=== PATIENT | male | born 1980 | race Caucasian/White ===

== ENCOUNTER 2018-11-19 09:55 | Emergency (ER) | payer OTHER ==
[~2018-11-19] VITALS: Ht 167.6 cm; Wt 86.4 kg
[2018-11-19] MEDS ORDERED: PERTUSS(ACELL),DIPH,TET VAC/PF 0.5 ML VIAL IM ONE (10:45)
[2018-11-19 13:30] VITALS: BP 119/68
== END 2018-11-19 14:01 | disposition home or self-care (01) ==
LOC: EMS 09:56
DX: S61.031A Puncture wound without foreign body of right thumb without damage to nail, initial encounter (principal); L08.89 Other specified local infections of the skin and subcutaneous tissue; W26.8XXA Contact with other sharp object(s), not elsewhere classified, initial encounter; Y93.89 Activity, other specified; Y92.69 Other specified industrial and construction area as the place of occurrence of the external cause; Y99.0 Civilian activity done for income or pay
CPT/HCPCS: 73140; 90471; 90715; 96372; 99283; J0690